=== PATIENT | male | born 1985 | race Caucasian/White ===

== ENCOUNTER 2020-06-10 14:17 | Outpatient (REF) | payer MEDICAID, SELFPAY | END 2020-06-10 14:18 | disposition home or self-care (01) | LOC: HO.LAB 14:17 | PROVIDERS: Visit Provider Internal Medicine | DX: Z20.828 Contact with and (suspected) exposure to other viral communicable diseases (principal) | CPT/HCPCS: U0003 ==

== ENCOUNTER 2021-09-09 18:29 | Emergency (ER) | payer MEDICAID, SELFPAY ==
[2021-09-09 18:32] VITALS: BP 123/68; PULSE 80; RESP 16; TEMP 36.6; O2SAT 98; BMI 24.3
[2021-09-09 18:57] LABS: COVID-19 Test Negative (Negative)
--- NOTE | 2021-09-09 19:12 | ED_ITS ---
HPI - General Adult General Chief complaint: Fever Stated complaint: fatigued, diarrhea ,fever Time Seen by Provider: 09/09/21 19:08 Source: patient Mode of arrival: ambulatory Limitations: no limitations History of Present Illness HPI narrative: 36-year-old male presenting to the ER with multiple medical symptoms for the last 5 days. He reports starting last Tuesday he was having cough productive of green phlegm, sore throat, not feeling well. The symptoms resolved and then he developed a ?sour stomach? where every time he ate something he just did not feel right. He denies any abdominal pain. He has been having on and off episodes of loose stool for the last several days as well. No blood. He reports some subjective fevers and chills and generalized weakness. No body aches, rashes, urinary symptoms, chest pain. No known sick contacts. He is partially vaccinated against COVID-19 with 1 booster shot about a month ago. He has been eating and drinking normally but reports his appetite is only been able to tolerate soup and bland things. MD complaint: Subjective fevers and chills, diarrhea, weakness Onset (ago): day(s) (5) Severity: moderate Quality: aching Pain Consistency: intermittent Relieving factors: none Exacerbating factors: none Associated symptoms: cough, fever/chills, loss of appetite, malaise and weakness Treatments prior to arrival: none Related Data Allergies Allergy/AdvReac Type Severity Reaction Status Date / Time No Known Allergies Allergy Unverified 04/24/20 16:39 [No Known Allergies*] Review of Systems Verdana 4l Review of Systems: Verdana 4d Verdana 4d Constitutional: No Fever, + Chills ENT/Mouth: + sore throat, No Rhinorrhea, No Swallowing Difficulty Eyes: No Eye Pain, No Swelling, No Redness Cardiovascular: No Chest Pain, No SOB Respiratory: + Cough, + Sputum, No Wheezing, No dyspneadyspnea Gastrointestinal: No Nausea, No Vomiting, + Diarrhea, No abdominal Pain, No Hematochezia, No Melena Genitourinary: No Dysuria, No Urinary Frequency, No Hematuria Musculoskeletal: No joint pain, No Myalgias Skin: No Skin Lesions, No rash Neuro: + Weakness, No Numbness, No Dizziness, + Headache Psych:+ Anxiety/Panic, + Depression Heme/Lymph: No Bruising, No Lymphadenopathy Endocrine: No Polyuria, No Polydipsia [facility] Social History Social History Advance Directives: No Advance Directives Information Provided: No Physical Exam Verdana 4l Vital Signs: Verdana 4d Verdana 4d Vital Signs: Verdana 4d Verdana 4Bd Last Vital Signs Verdana 4d Education Reporter New 4d Education Reporter New 4d Temp 97.8 F 09/09/21 18:32 Education Reporter New 4d Pulse 80 09/09/21 18:32 Education Reporter New 4d Resp 16 09/09/21 18:32 BP 123/68 09/09/21 18:32 Pulse Ox 98 09/09/21 18:32 BMI result Body Mass Index 24.3 Appearance: Alert. Oriented X3. No acute distress. Eyes: Pupils equal, round and reactive to light. ENT: Pharynx normal. Normal tonsils, uvula midline. Normal Tm's bilaterally Neck: Normal inspection. Neck supple. No LAD CVS: Normal heart rate and rhythm. Pulses normal. Respiratory: No respiratory distress. Breath sounds normal. Abdomen: Soft and nontender. +BS x4 Skin: Skin warm and dry. Normal skin color. Normal skin turgor. No rashes. Extremities: No lower extremity edema. Neuro: Oriented X 3. No motor deficit. No sensory deficit. Course Course Course Narrative: 36-year-old male presenting with various complaints for the last 1 week including generalized weakness, subjective fevers, chills, diarrhea and upset stomach. His exam is unremarkable and his vital signs are normal. Most likely a viral illness. His COVID swab, influenza and strep throat are all negative. Tolerating p.o. with no evidence of dehydration. We discussed symptomatic bassem gemjohn and return precautions. Will provide work note per request. Stable for discharge home with outpatient follow-up and supportive care. Medical Decision Making Lab Data Labs: Lab Results 09/09/21 09/09/21 09/09/21 Range/Units 18:37 19:17 19:18 COVID-19 ([facility]IR) Negative (Negative) COVID-19 Clin Com See Note Influenza Type A (DAR) Negative (Negative) Influenza Type B (DAR) Negative (Negative) Influenza A & B Note See Note S. pyogenes GrpA DAR Negative (Negative) Critical Care Time Critical Care Time Critical Care Time: No Discharge Plan Discharge Clinical Impression: Viral infection Patient Disposition: Home, Self-Care Instructions: Viral Syndrome (ED) Additional Instructions: You were negative for COVID, Influenza, and Strep throat. Your symptoms are most likely due to a viral infection. Recommend rest, increasing your oral hydration. Take over the counter Imodium or Pepto bismol as needed for upset stomach and diarrhea. If you develop new or worsening symptoms call 911 or come back to the ER for further evaluation. Stand Alone Forms: Work/School Release
[2021-09-09 19:35] LABS: IDNOW Serial# 9DD0AD1C; Strep A Nucleic Acid Negative (Negative)
[2021-09-09 19:42] LABS: Influenza A Negative (Negative); Influenza B2 Negative (Negative)
== END 2021-09-09 20:51 | disposition home or self-care (01) ==
PROVIDERS: Physician Assistant; Emergency Provider Internal Medicine
DX: R50.9 Fever, unspecified (principal); R05.9 Cough, unspecified; R19.7 Diarrhea, unspecified; Z20.822 Contact with and (suspected) exposure to COVID-19; Z79.899 Other long term (current) drug therapy
CPT/HCPCS: 87502; 87635; 87651; 99283

== ENCOUNTER 2021-11-19 13:22 | Outpatient (REF) | payer MEDICAID, SELFPAY ==
--- NOTE | ~2021-11-19 | US_ITS ---
EXAMINATION: US SOFT TISSUE HEAD/NECK CLINICAL INFORMATION: Mobile mass in right neck medial to SCM. COMPARISON: None TECHNIQUE: Linear transducer lagos-scale and color Doppler examination of the right neck. FINDINGS: The palpable abnormality corresponds to a complex nodule which majority represents colloid cyst with some dependent hyperechoic material within the right thyroid lobe measuring 2.1 x 1.9 x 1.8 cm in size. There is intranodular blood flow present. This corresponds to a TI-RADS score of 2 with no followup needed. The second area in the right neck indicated by the patient (right level 2) did not demonstrate any focal cystic or solid mass. No abnormal lymph node identified. 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 ACR TI-RADS RECOMMENDATION REFERENCE: Ultrasound-guided fine-needle aspiration, followup ultrasound, no further follow up. * TR1 (0 point) and TR 2 (2 points): No FNA or follow up * TR3 (3 points): FNA if more than or equal to 2.5 cm in maximum dimension, followup ultrasound in 1, 3 and 5 years if 1.5 to 2.4 cm in maximum dimension. * TR4 (4-6 points): FNA if more than or equal to 1.5 cm in maximum dimension, followup ultrasound in 1, 2, 3 and 5 years if 1 to 1.4 cm in maximum dimension. * TR5 (more than or equal to 7 points): FNA if more than or equal to 1 cm in maximum dimension, followup ultrasound every year for 5 years if 0.5 to 0.9 cm in maximum dimension. * TR3, TR4 or TR5 nodules that are below the size threshold for follow up receive no follow up.
== END 2021-11-19 13:23 | disposition home or self-care (01) ==
LOC: HO.US 13:22
PROVIDERS: Visit Provider General Practice
DX: R22.1 Localized swelling, mass and lump, neck (principal)
CPT/HCPCS: 76536

== ENCOUNTER 2021-12-10 15:20 | Outpatient (REF) | payer MEDICAID, SELFPAY ==
[2021-12-10 16:24] LABS: Alanine Aminotransferase 18 U/L (0-40); Albumin Level 4.2 g/dL (3.5-5.0); Alkaline Phosphatase 39 U/L (39-117); Aspartate Amino Transferase 20 U/L (5-37); Bilirubin Direct 0.7 mg/dL (0.0-0.5); Iron 130 mcg/dL (45-160); Percent Iron Saturation 45 % (15-50); Total Iron Binding Capacity 292 mcg/dL (228-428); Total Protein 7.1 g/dL (6.5-8.0); Unsaturated Iron Binding 162 ug/dL
[2021-12-10 16:45] LABS: Ferritin 133 ng/mL (20-250)
[2021-12-13 13:41] LABS: Anti Nuclear Antibody Screen NEGATIVE (NEGATIVE)
[2021-12-15 13:56] LABS: Mitochondrial Antibodies NEGATIVE (NEGATIVE)
[2021-12-16 22:51] LABS: Smooth Muscle Antibody <20 U (<20)
== END 2021-12-10 15:21 | disposition home or self-care (01) ==
LOC: HO.LAB 15:20
PROVIDERS: PCP General Practice; Visit Provider Internal Medicine Gastroenterology
DX: E80.7 Disorder of bilirubin metabolism, unspecified (principal)
CPT/HCPCS: 36415; 80076; 82728; 83540; 86015; 86038; 86039; 86255; 86256

== ENCOUNTER 2021-12-23 12:17 | Outpatient (REF) | payer MEDICAID, SELFPAY ==
--- NOTE | ~2021-12-23 | US_ITS ---
EXAMINATION: US ABDOMEN COMPLETE CLINICAL INFORMATION: Elevated bilirubin. COMPARISON: None TECHNIQUE: Real-time imaging of the abdominal viscera. FINDINGS: PANCREAS: Normal. ABDOMINAL AORTA: The proximal, mid, and distal segments are normal in caliber. INFERIOR VENA CAVA: Visualized portions are normal. LIVER: Normal. The liver is normal in size. The liver contour is normal. Parenchymal echogenicity is normal. No focal hepatic lesion. There is no intrahepatic biliary duct dilatation seen. GALLBLADDER: Normal. The gallbladder is physiologically distended without evidence of stones, sludge, polyps, wall thickening or pericholecystic fluid. COMMON BILE DUCT: Normal in caliber measuring 0.1 cm in diameter. RIGHT KIDNEY: Normal. No hydronephrosis. No renal calculi or focal parenchymal lesions. The kidney measures 9.9 cm in maximum dimension. LEFT KIDNEY: Normal. No hydronephrosis. No renal calculi or focal parenchymal lesions. The kidney measures 11.5 cm in maximum dimension. SPLEEN: The spleen is not well seen. The spleen measures 9.2 cm in maximum dimension. FREE FLUID: None. US/US abdomen complete IMPRESSION: Unremarkable complete abdomen ultrasound.
== END 2021-12-23 12:18 | disposition home or self-care (01) ==
LOC: HO.US 12:17
PROVIDERS: Visit Provider Internal Medicine Gastroenterology
DX: E80.7 Disorder of bilirubin metabolism, unspecified (principal)
CPT/HCPCS: 76700

== ENCOUNTER 2022-03-05 13:36 | Outpatient (REF) | payer MEDICAID, SELFPAY ==
--- NOTE | ~2022-03-05 | XR_ITS ---
EXAMINATION: XR CHEST XR RIBS, LEFT CLINICAL INFORMATION: Pleurodynia COMPARISON: None TECHNIQUE: 5 views of the chest and left RIBS FINDINGS: No focal consolidation. No pneumothorax. Trachea is midline. Cardiomediastinal silhouette is not enlarged. No large pleural effusion. Soft tissues are unremarkable. Osseous structures are intact. No acute visualized left-sided rib fractures. XR/XR ribs LT 2V IMPRESSION: 1. No acute cardiopulmonary process. 2. No acute visualized left-sided rib fractures.
--- NOTE | ~2022-03-05 | XR_ITS ---
EXAMINATION: XR CHEST XR RIBS, LEFT CLINICAL INFORMATION: Pleurodynia COMPARISON: None TECHNIQUE: 5 views of the chest and left RIBS FINDINGS: No focal consolidation. No pneumothorax. Trachea is midline. Cardiomediastinal silhouette is not enlarged. No large pleural effusion. Soft tissues are unremarkable. Osseous structures are intact. No acute visualized left-sided rib fractures. XR/XR chest 2V IMPRESSION: 1. No acute cardiopulmonary process. 2. No acute visualized left-sided rib fractures.
== END 2022-03-05 13:37 | disposition home or self-care (01) ==
LOC: HO.XRAY 13:36
PROVIDERS: PCP General Practice; Visit Provider General Practice
DX: R07.81 Pleurodynia (principal); R07.89 Other chest pain
CPT/HCPCS: 71046; 71100

== ENCOUNTER → 2022-07-07 13:05 | Outpatient (BNVA) | payer MEDICAID, SELFPAY | PROVIDERS: PCP General Practice; Visit Provider Surgery | DX: K64.4 Residual hemorrhoidal skin tags (principal); K64.8 Other hemorrhoids | CPT/HCPCS: 46600; 99202 ==